=== PATIENT | male | born 1970 | race Caucasian/White ===

== ENCOUNTER → 2017-02-18 | Outpatient (CLI) | payer BC | LOC: GMAJ 10:12 | PROVIDERS: ATTEND Family Medicine | DX: I10 Essential (primary) hypertension (principal); Z12.5 Encounter for screening for malignant neoplasm of prostate ==

== ENCOUNTER → 2019-07-21 | Outpatient (CLI) | payer BC | LOC: GMAJ 10:36 | PROVIDERS: ATTEND Family Medicine | DX: Z12.5 Encounter for screening for malignant neoplasm of prostate (principal) ==

== ENCOUNTER → 2020-08-09 | Outpatient (CLI) | payer BC | LOC: GMAJ 13:49 | PROVIDERS: ATTEND Family Medicine | DX: Z12.5 Encounter for screening for malignant neoplasm of prostate (principal) ==